=== PATIENT | male | born 1990 | race Caucasian/White ===

== ENCOUNTER 2024-10-08 16:59 | Emergency (ER) | payer SELFPAY ==
[~2024-10-08] VITALS: Ht 182.9 cm; Wt 75.0 kg
[2024-10-08 17:02] VITALS: BP 133/75; PULSE 84; RESP 16; TEMP 98.4; O2SAT 97
[2024-10-08] MEDS ORDERED: METH-798 PO (20:02)
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
== END 2024-10-08 20:20 | disposition home or self-care (01) ==
LOC: ER 16:59
DX: S13.4XXA Sprain of ligaments of cervical spine, initial encounter (principal); Z88.0 Allergy status to penicillin; Z79.899 Other long term (current) drug therapy; V89.2XXA Person injured in unspecified motor-vehicle accident, traffic, initial encounter; Y93.89 Activity, other specified; Y92.89 Other specified places as the place of occurrence of the external cause; Y99.8 Other external cause status
CPT/HCPCS: 99283